=== PATIENT | female | born 1985 | race Caucasian/White ===

== ENCOUNTER 2021-11-03 09:37 | Outpatient (CLI) | payer OTHER, SELFPAY ==
[2021-11-03 09:58] LABS: Basophils Absolute Auto 0.07 K/mm3 (0.00-0.10); Basophils Percent Auto 0.8 % (0.0-1.0); Eosinophils Absolute Auto 0.24 K/mm3 (0.02-0.50); Eosinophils Percent Auto 2.8 % (1.0-6.0); Hematocrit 40.4 % (35.0-49.0); Hemoglobin 13.2 g/dL (12.0-15.0); Immature Granulocyte Absolute 0.03 K/mm3 (0.00-0.00); Immature Granulocyte Percent A 0.4 % (0.0-0.0); Lymphocytes Absolute Auto 2.19 K/mm3 (1.10-4.50); Lymphocytes Percent Auto 25.9 % (18.0-42.0); Mean Corpuscular HGB Conc 32.7 g/dL (32.0-36.0); Mean Corpuscular Hemoglobin 30.2 pg (27.0-31.0); Mean Corpuscular Volume 92.4 fL (78.0-102.0); Mean Platelet Volume 9.3 fl (9.2-11.8); Monocytes Absolute Auto 0.53 K/mm3 (0.10-0.90); Monocytes Percent Auto 6.3 % (2.0-11.0); Neutrophils Absolute Auto 5.4 K/mm3 (1.7-7.2); Neutrophils Percent Auto 63.8 % (50.0-70.0); Platelet Count Result 373 K/mm3 (150-420); Red Blood Count 4.37 M/mm3 (4.20-5.40); Red Cell Distribution Width 13.1 % (11.6-14.4); White Blood Count 8.5 K/mm3 (4.8-10.8)
[2021-11-03 10:53] LABS: Alanine Aminotransferase 40 U/L (14-59); Alkaline Phosphatase 120 U/L (46-116); Anion Gap 11 mmol/L (8-16); Aspartate Amino Transferase 22 U/L (15-37); Bilirubin,Total 0.3 mg/dL (0.00-1.00); Blood Urea Nitrogen 12 mg/dL (7-18); Calcium 9.4 mg/dL (8.5-10.1); Carbon Dioxide 22 mmol/L (21-32); Chloride 103 mmol/L (98-108); Cholesterol 190 mg/dL (0-200); Estimated Glomerular Filt Rate > 60; Glucose 99 mg/dL (70-99); HDL Direct 58 mg/dL (40-60); LDL Cholesterol Calculated 107 mg/dL (<130); Osmolality Calculated 281 mOsm/kg (285-295); Potassium 4.1 mmol/L (3.5-5.1); Sodium 136 mmol/L (136-145); Thyroid Stimulating Hormone 1.07 uIU/mL (0.36-3.74); Total Protein 7.5 g/dL (6.4-8.2); Triglycerides 126 mg/dL (0-150)
== END 2021-11-03 09:38 | disposition home or self-care (01) ==
LOC: CHSLAB 09:42
PROVIDERS: PCP Nurse Practitioner Family; Visit Provider Nurse Practitioner Family
DX: F41.9 Anxiety disorder, unspecified (principal); E28.2 Polycystic ovarian syndrome
CPT/HCPCS: 36415; 80053; 80061; 84443; 85025

== ENCOUNTER 2021-11-06 11:20 | Outpatient (CLI) | payer OTHER, SELFPAY ==
--- NOTE | ~2021-11-06 | XR_ITS ---
EXAMINATION: XR shoulder LT min 2V DATE: 11/06/2021 11:34 INDICATION: Left shoulder pain. TECHNIQUE: 4 views of left shoulder were obtained. COMPARISON: None. FINDINGS: Bone alignment is normal. No fracture. There is a benign bone island in humeral head. Gleno humeral joint is normal. There is mild acromioclavicular joint osteoarthritis. IMPRESSION: 1. Mild left acromioclavicular joint osteoarthritis. Reviewed, dictated and finalized at location A.
== END 2021-11-06 11:21 | disposition home or self-care (01) ==
LOC: CHSIMG 11:22
PROVIDERS: PCP Nurse Practitioner Family; Visit Provider Nurse Practitioner Family
DX: M25.512 Pain in left shoulder (principal)
CPT/HCPCS: 73030

== ENCOUNTER 2021-12-02 07:50 | Outpatient (RCR) | payer OTHER, SELFPAY ==
--- NOTE | 2021-12-02 10:04 | PTOPEVAL ---
Thank you for referring Ines Wilkins to [facility].? The patient is scheduled to be seen for therapy? ____x/week for ___ weeks. Please review, sign, date and return this plan of care REGGIE. I agree with and certify that the following plan of care is medically necessary. Referring Physician Date Admitting Provider: Attending Provider: Diana Woods NP Referring Provider: *PT Outpatient Evaluation Start: 12/02/21 07:02 Freq: Status: Active Protocol: Document 12/02/21 07:00 [facility] (Rec: 12/02/21 08:32 [facility] [email or web address]) Therapy Assessment Status Assessment Status Assessment Status Evaluation Evaluation Information Problem Diagnosis L Shoulder Pain Onset 11/09/21 Additional Evaluation Detail QuickDASH = 31.8% Functionally Declined Subjective Information Pt reports that she fell into Query Text:As Reported By Patient/ a wall with her L shoulder. Family Within a few hours, she had went to a doctor due to having a sharp, shooting, and burning sensation in her L arm . She felt as though her arm was weight. She now struggles when lifting her arm to about the level of her head. She states that her arm has remained sore since the injury. She likes to ride bikes, and this will increase her shoulder pain. She takes ibuprofen and uses lidocaine patches to decrease her pain. She also experiences difficulty with sleeping due to her shoulder pain waking her up as well as while working at home on a computer. Prior Level of Function Comments Additional Prior Level of Function Pt reports that she was able Comments to work and sleep without difficulty. Pain Assessment Timing of Pain Assessment Timing of Pain Assessment Assessment Pain Scale Pain Scale Used Numeric (1 - 10) Self Report Pain Assessment Left Shoulder(s) Reported Pain Level 3 Lowest Pain Intensity 1 Greatest Pain Intensity 6 Pain Score Pain Score 3: Self Report Interventions Used Interventions Used By Clinicians Activity or ADL's,Education, Exercise Upper Extremity Range of Motion Scapular/ Shoulder Range of Zoltan
--- NOTE | 2021-12-30 08:01 | PTOPEVAL ---
Thank you for referring Ines Wilkins to [facility].? The patient is scheduled to be seen for therapy? ____x/week for ___ weeks. Please review, sign, date and return this plan of care REGGIE. I agree with and certify that the following plan of care is medically necessary. Referring Physician Date Admitting Provider: Attending Provider: Diana Woods NP Referring Provider: *PT Outpatient Evaluation Start: 12/02/21 07:02 Freq: Status: Active Protocol: Document 12/30/21 07:00 BELKYS (Rec: 12/30/21 07:57 [facility] [email or web address]) Therapy Assessment Status Assessment Status Assessment Status Re-evaluation Evaluation Information Problem Diagnosis L Shoulder Pain Onset 11/09/21 Additional Evaluation Detail quick dash = 31.8% functionally declined Subjective Information patient reports she had been Query Text:As Reported By Patient/ feeling better, but as of late Family she has been more sore. she reports she has been more sore due to having to lift her father up and help out with more after a recent fall he had. she reports she would like to continue for a short stent of therapy to return back to her pain free performance of activities. Pain Assessment Timing of Pain Assessment Timing of Pain Assessment Assessment Pain Scale Pain Scale Used Numeric (1 - 10) Self Report Pain Assessment Left Shoulder(s) Reported Pain Level 7 Pain Score Pain Score 7: Self Report Interventions Used Interventions Used By Clinicians Activity or ADL's,Education, Exercise Upper Extremity Range of Motion Scapular/ Shoulder Range of Motion Left Shoulder Flexion - Active 160 Shoulder Medial Rotation - Active 50 Shoulder Lateral Rotation - Active 90 Scapular/Shoulder Range of Motion pain increased in the L Comments shoulder with far flexion and abduction of the L shoulder. functional ER reach to the upper thoracic spine functional IR reach to the middle/lower thoracic spine Upper Extremity Muscle Strength Testing Scapular/Shoulder Left Shoulder Flexion Strength 4+ Good + Shoulder Extension Strength 5 Normal Shoulder Abduction Strength 4+ Good + Shoulder Medial Rotation Strength 5 Normal Shoulder Lateral Rotation Strength 4 Good Elbow/Forearm Left Elbow Flexion Streng
--- NOTE | 2022-01-12 07:55 | PTOPEVAL ---
Thank you for referring Ines Wilkins to [facility].? The patient is scheduled to be seen for therapy? ____x/week for ___ weeks. Please review, sign, date and return this plan of care REGGIE. I agree with and certify that the following plan of care is medically necessary. Referring Physician Date Admitting Provider: Attending Provider: Diana Woods NP Referring Provider: SHANITA Outpatient Evaluation Start: 12/02/21 07:02 Freq: Status: Active Protocol: Document 01/12/22 07:10 [facility] (Rec: 01/12/22 07:53 [facility] [email or web address]) Therapy Assessment Status Assessment Status Assessment Status Discharge Evaluation Information Problem Diagnosis L Shoulder Pain Onset 11/09/21 Additional Evaluation Detail quick dash = 4.5% functionally declined Subjective Information patient reports she feels Query Text:As Reported By Patient/ good this date. she reports Family no pain, but fatigue in the shoulder with exercises/ activities. she reports she is ready to make today her last therapy session. Pain Assessment Timing of Pain Assessment Timing of Pain Assessment Assessment Self Report Self Report Pain Level 0 Pain Score Pain Score 0: Self Report Upper Extremity Range of Motion Scapular/ Shoulder Range of Motion Left Shoulder Flexion - Active 160 Shoulder Medial Rotation - Active 60 Shoulder Lateral Rotation - Active 90 Scapular/Shoulder Range of Motion functional ER reach to the Comments upper thoracic spine functional IR reach to the middle/lower thoracic spine Upper Extremity Muscle Strength Testing Scapular/Shoulder Left Shoulder Flexion Strength 5 Normal Shoulder Extension Strength 5 Normal Shoulder Abduction Strength 5 Normal Shoulder Medial Rotation Strength 5 Normal Shoulder Lateral Rotation Strength 4+ Good + General Exercise General Exercises Exercise Description Ther Ex: Query Text:Record Sets, Reps, - UBE 8 minutes level 3 (fwd Resistance, and Position and rev) - shoulder flex and scap 2lb x10, 3lb x10, 4lb x10 bilaterally - bent over row 10lb 2x15 bilat - tband light blue ER/IR x20 - tband rows, ext x30 each bilat light blue tband - lateral wall walking 15' x 4 laps with green tband
== END 2022-01-12 10:36 | disposition home or self-care (01) ==
LOC: CHSPT 07:50
PROVIDERS: PCP Nurse Practitioner Family; Visit Provider Nurse Practitioner Family
DX: M19.012 Primary osteoarthritis, left shoulder (principal)
CPT/HCPCS: 97014; 97110; 97140; 97161; G0283

== ENCOUNTER 2022-07-28 10:58 | Outpatient (CLI) | payer OTHER, SELFPAY ==
[2022-07-28 11:56] LABS: Strep Group A RT-PCR DETECTED (Negative)
== END 2022-07-28 10:59 | disposition home or self-care (01) ==
LOC: CHSLAB 10:59
PROVIDERS: PCP Nurse Practitioner Family; Visit Provider Nurse Practitioner Family
DX: J02.0 Streptococcal pharyngitis (principal); Z20.818 Contact with and (suspected) exposure to other bacterial communicable diseases
CPT/HCPCS: 87651

== ENCOUNTER 2023-03-14 10:03 | Outpatient (CLI) | payer OTHER, SELFPAY ==
[2023-03-14 10:21] LABS: Basophils Absolute Auto 0.06 K/mm3 (0.00-0.10); Basophils Percent Auto 0.6 % (0.0-1.0); Hematocrit 39.8 % (35.0-49.0); Immature Granulocyte Absolute 0.04 K/mm3 (0.00-0.00); Immature Granulocyte Percent A 0.4 % (0.0-0.0); Lymphocytes Percent Auto 25.8 % (18.0-42.0); Mean Corpuscular HGB Conc 32.7 g/dL (32.0-36.0); Mean Corpuscular Volume 91.9 fL (78.0-102.0); Mean Platelet Volume 9.2 fl (9.2-11.8); Monocytes Absolute Auto 0.47 K/mm3 (0.10-0.90); Monocytes Percent Auto 4.7 % (2.0-11.0); Neutrophils Absolute Auto 6.6 K/mm3 (1.7-7.2); Neutrophils Percent Auto 65.5 % (50.0-70.0); Platelet Count Result 349 K/mm3 (150-420); Red Blood Count 4.33 M/mm3 (4.20-5.40); White Blood Count 10.1 K/mm3 (4.8-10.8)
[2023-03-14 10:59] LABS: Hemoglobin A1C 5.4 % (<5.7)
[2023-03-14 11:28] LABS: Alanine Aminotransferase 21 U/L (14-59); Albumin Level 3.5 g/dL (3.4-5.0); Alkaline Phosphatase 103 U/L (46-116); Anion Gap 13 mmol/L (8-16); Aspartate Amino Transferase 12 U/L (15-37); Bilirubin,Total 0.3 mg/dL (0.00-1.00); Blood Urea Nitrogen 11 mg/dL (7-18); Calcium 9.1 mg/dL (8.5-10.1); Carbon Dioxide 24 mmol/L (21-32); Chloride 102 mmol/L (98-108); Cholesterol 198 mg/dL (0-200); Estimated Glomerular Filt Rate > 60; Folic Acid > 20.0 ng/mL (8.6->20); Glucose 99 mg/dL (70-99); HDL Direct 48 mg/dL (40-60); LDL Cholesterol Calculated 116 mg/dL (<130); Osmolality Calculated 287 mOsm/kg (285-295); Potassium 4.2 mmol/L (3.5-5.1); Sodium 139 mmol/L (136-145); Total Protein 6.8 g/dL (6.4-8.2); Triglycerides 171 mg/dL (0-150); Vitamin B12 604 pg/mL (193-986)
[2023-03-14 11:41] LABS: Thyroid Stimulating Hormone Reflex 1.14 u/IU/mL (0.36-3.74)
[2023-03-17 12:19] LABS: Vitamin D 25 Hydroxy 24 ng/mL (30-100)
== END 2023-03-14 10:04 | disposition home or self-care (01) ==
LOC: CHSLAB 10:05
PROVIDERS: PCP Nurse Practitioner Family; Visit Provider Nurse Practitioner Family
DX: L81.4 Other melanin hyperpigmentation (principal); R53.83 Other fatigue; Z13.220 Encounter for screening for lipoid disorders; E28.2 Polycystic ovarian syndrome
CPT/HCPCS: 36415; 80053; 80061; 82306; 82607; 82746; 83036; 84443; 85025

== ENCOUNTER 2023-08-26 11:33 | Outpatient (CLI) | payer OTHER, SELFPAY ==
--- NOTE | ~2023-08-26 | XR_ITS ---
Left foot Technique: AP, oblique, and lateral views were obtained. Clinical History: Third toe injury Findings: No acute fracture or dislocation is seen. Osseous alignment is anatomic. Joint spaces are p reserved without erosive or degenerative change. Soft tissues are unremarkable. Impression: Unremarkable left foot radiographs. Reviewed, dictated and finalized at [facility]. Impression: Unremarkable left foot radiographs.
== END 2023-08-26 11:34 | disposition home or self-care (01) ==
LOC: CHSIMG 11:36
PROVIDERS: PCP Nurse Practitioner Family; Visit Provider Nurse Practitioner Family
DX: M79.675 Pain in left toe(s) (principal)
CPT/HCPCS: 73630

== ENCOUNTER 2024-01-26 08:10 | Outpatient (CLI) | payer OTHER, SELFPAY ==
[2024-01-26 08:26] LABS: Basophils Absolute Auto 0.07 K/mm3 (0.00-0.10); Basophils Percent Auto 0.7 % (0.0-1.0); Eosinophils Absolute Auto 0.32 K/mm3 (0.02-0.50); Eosinophils Percent Auto 3.4 % (1.0-6.0); Hematocrit 38.1 % (35.0-49.0); Hemoglobin 12.5 g/dL (12.0-15.0); Immature Granulocyte Absolute 0.02 K/mm3 (0.00-0.00); Immature Granulocyte Percent A 0.2 % (0.0-0.0); Lymphocytes Absolute Auto 3.15 K/mm3 (1.10-4.50); Lymphocytes Percent Auto 33.1 % (18.0-42.0); Mean Corpuscular HGB Conc 32.8 g/dL (32-36); Mean Corpuscular Hemoglobin 29.3 pg (27.0-31.0); Mean Corpuscular Volume 89.2 fL (78.0-102.0); Mean Platelet Volume 9.1 fl (9.2-11.8); Monocytes Absolute Auto 0.51 K/mm3 (0.10-0.90); Monocytes Percent Auto 5.4 % (2.0-11.0); Neutrophils Absolute Auto 5.44 K/mm3 (1.70-7.20); Neutrophils Percent Auto 57.2 % (50.0-70.0); Platelet Count Result 377 K/mm3 (150-420); Red Blood Count 4.27 M/mm3 (4.20-5.40); Red Cell Distribution Width 12.9 % (11.6-14.4); White Blood Count 9.5 K/mm3 (4.8-10.8)
[2024-01-26 08:39] LABS: Hemoglobin A1C 5.6 % (<5.7)
[2024-01-26 09:24] LABS: Alanine Aminotransferase 19 U/L (14-59); Albumin Level 3.2 g/dL (3.4-5.0); Alkaline Phosphatase 116 U/L (46-116); Anion Gap 9 mmol/L (4-12); Aspartate Amino Transferase 12 U/L (15-37); Bilirubin,Total 0.3 mg/dL (0.00-1.00); Blood Urea Nitrogen 7 mg/dL (7-18); Calcium 8.6 mg/dL (8.5-10.1); Carbon Dioxide 27 mmol/L (21-32); Chloride 102 mmol/L (98-108); Cholesterol 191 mg/dL (0-200); Estimated Glomerular Filt Rate > 60; Glucose 96 mg/dL (70-99); HDL Direct 51 mg/dL (40-60); LDL Cholesterol Calculated 118 mg/dL (<130); Osmolality Calculated 284 mOsm/kg (285-295); Potassium 4.4 mmol/L (3.5-5.1); Sodium 138 mmol/L (136-145); Total Protein 6.5 g/dL (6.4-8.2); Triglycerides 109 mg/dL (0-150)
[2024-01-26 09:25] LABS: Thyroid Stimulating Hormone Reflex 0.82 u/IU/mL (0.36-3.74)
[2024-01-28 03:44] LABS: Vitamin D 25 Hydroxy 23 ng/mL (30-100)
== END 2024-01-26 08:11 | disposition home or self-care (01) ==
PROVIDERS: PCP Nurse Practitioner Family; Visit Provider Nurse Practitioner Family
DX: Z00.00 Encounter for general adult medical examination without abnormal findings (principal); E55.9 Vitamin D deficiency, unspecified
CPT/HCPCS: 36415; 80053; 80061; 82306; 83036; 84443; 85025

== ENCOUNTER 2025-02-25 07:54 | Outpatient (CLI) | payer OTHER, SELFPAY ==
[2025-02-25 08:06] LABS: Hematocrit 39.9 % (35.0-49.0); Hemoglobin 12.8 g/dL (12.0-15.0); Immature Granulocyte Percent A 0.2 % (0.0-0.0); Lymphocytes Absolute Auto 3.56 K/mm3 (1.10-4.50); Mean Corpuscular HGB Conc 32.1 g/dL (32-36); Mean Corpuscular Hemoglobin 29.4 pg (27.0-31.0); Mean Corpuscular Volume 91.7 fL (78.0-102.0); Nucleated Red Blood Cells Absolute Auto 0.00 K/mm3 (0.00-0.00); Nucleated Red Blood Cells Perc 0.0 % (0-0.0); Platelet Count Result 395 K/mm3 (150-420); Red Blood Count 4.35 M/mm3 (4.20-5.40); White Blood Count 8.9 K/mm3 (4.8-10.8)
[2025-02-25 08:22] LABS: Hemoglobin A1C 5.0 % (<5.7)
--- OUTSIDE RECORDS SUMMARY | 2025-02-25 08:22 | XMS_ITS | Clinical Summary ---
Author Organization CC [facility] [email or web address] Address [address] [place] [address] Phone Care Team Providers Care Biological Science Technician Name Role Phone Bobby Sorenson MD Primary Care Provider [phone] Allergies Active Allergy Reactions Criticality Noted Date Comments Latex Rash Reaction: RASH Medications citalopram (CeleXA) 20 mg tablet Take 2 tablets (40 mg total) by mouth daily Active metFORMIN (GLUCOPHAGE) 500 mg tablet Take 1 tablet (500 mg total) by mouth 2 (two) times a day with meals Active cetirizine (ZyrTEC) 10 mg capsule 10 mg daily 5 Active Wegovy 1.7 mg/0.75 mL auto-injector Inject under the skin every 7 days 4 Active desogestreL-ethiny l estradioL (Apri) 0.15-0.03 mg per tabletIndications: Oral contraceptive pill surveillance Take 1 tablet daily. Each pack skip placebo pills and start a new pill pack 112 tablet 4 4 Active Active Problems Problem Noted Date Diagnosed Date Traumatic closed nondisplace d fracture of cuboid bone of right foot 10/06/2018 Sprain of anterior talofibular ligament of right ankle 10/06/2018 Obesity with body mass index 30 or greater 01/28 Overview (09/10/2016): BMI 30+ - obesity Asthma 04/20/2014 Overview (09/10/2016): Asthma Polycystic ovaries 04/20/2014 Overview (09/10/2016): PCOS - Polycystic ovarian syndrome Immunizations Immunization Administration Dates Next Due Tdap 09/06/2014 Surgical History Surgery Date Site/Laterality Comments APPENDECTOMY OTHER SURGICAL HISTORY Abnormal Pap, HR HPV: Colposcopy 14 - TY 1 SECTION 06/06/2014 - 06/05/2015 Medical History Medical History Date Comments Hx Other Medical Abnormal Pap, H R HPV; Comments: RED 04/20/2014 - Hx Other Medical Asthma - mild; Comments: RED 04/20/2014 - Hx Other Medical PCOS; Comments: RED 04/20/2014 - Hx Other Medical ; Comm ents: Pitocin induction for post-dates. 1' LTCS for NRFHTs.; Outcome: 41W1D week 7lb(s) 12 oz Male Family History Medical History Relation Name Comments Diabetes Father Diabetes mellit us; Hyperlipidemia Father High choleste rol; Hypertension Father Hypertension; Colon cancer Father's Brother Cancer, col on; Colon cancer Father's Sister x2 Cancer, colo n; Lung cancer Maternal Grandfather Cancer, lung; Breast cancer Maternal Grandmother Cancer , breast; Heart attack Maternal Grandmother Myocard ial infarction; Breast cancer Other 1 MGGM Cancer, breast ; Breast cancer Other 2 Family history of Cancer, breast; Colon cancer Other 3 Family history of Cancer, colon; Lung cancer Other 4 Family history of Cancer, lung; Pancreatic cancer Other 5 Family his tory of Cancer, pancreas; Diabetes Other 6 Family history of Diabetes mellitus; Hypertension Other 7 Family history of Hypertension; Breast cancer Paternal Grandmother Cancer , breast; Relation Name Status Comments Father Father's Brother Father's Sister x2 Maternal Grandfather Maternal Grandmother Other 1 MGGM Other 2 Other 3 Other 4 Other 5 Other 6 Other 7 Paternal Grandmother Social History Tobacco Use Types Packs/Day Years Used Date Smoking Tobacco: Never Smokeless Tobacco: Never Tobacco Cessation:Counseling Given: Not Answered Alcohol Use Standard Drinks/Week Comments No 0 (1 standard drink = 0.6 oz pur e alcohol) Comments No Sex and Gender Information Value Date Recorded Sex Assigned at Not on file Legal Sex Female 10:00 AM CLOUD SERVICES ARCHITECT Gender Identity Female 04/23/2023 1:09 PM CLOUD SERVICES ARCHITECT Sexual Orientation Not on file Occupation Industry Job Start Date Job End Date RN Not on file Not on file Not on file Obstetrics History Para Term AB IAB SAB Ectopic Multiple Livin g Live Births 1 1 1 0 0 1 Date Outcome GA Total Labor Labor/2nd/3rd Weight Sex Type Anes PTL Megan A1 A5 Name Clin Term Last Filed Vital Signs Vital Sign Reading Time Taken Comments Blood Pressure 110/80 04/18/2024 9:53 AM CLOUD SERVICES ARCHITECT Pulse 68 12/26/2018 10:53 AM CDT Temperature 36.6 C (97.8 F) 02/27/2020 10:52 AM CDT Respiratory Rate 16 12/26/2018 10:53 AM CDT Oxygen Saturation 100% 10/06/2018 4:22 PM CDT Inhaled Oxygen Concentration - - Weight 97.1 kg (214 lb) 04/18/2024 9:53 AM CLOUD SERVICES ARCHITECT Height 163.8 cm (5' 4.5) 04/18/2024 9:53 AM CLOUD SERVICES ARCHITECT Body Mass Index 36.17 04/18/2024 9:53 AM CLOUD SERVICES ARCHITECT Plan of Treatment Health Maintenance Due Date Last Done Comments Breast Cancer Screening-Mammogram 1984 Depression Screening 1984 Varicella Vaccines (1 of 2 - 13+ 2-dose series) 1997 Hepatitis B Screening 2002 Pneumococcal vaccine <65 (1 of 2 - PCV) 09/25/2003 HPV Vaccines (1 - 3-dose SCD M series) 09/25/2011 DTaP/Tdap/Td Vaccine (2 - Td or Tdap) 09/06/2024 09/06/2014 Covid-19 Vaccine (3 - 2024-2 6 season) 2025 06/30/2020, 06/02/2020 Influenza Vaccine (#1) 2025 Cervical Cancer Screening 04/18/20252023, 04/11/2023, 03/31/2022, Additional history exists Regular Well Visit/Exam 18-64 04/18/2025, 04/11/2023, 03/31/2022, Additional history exists Hepatitis C Screening Completed 04/26/2014 Procedures Procedure Name Priority Date/Time Associated Diagnosis Comments PAP WITH REFLEX TO HIGH RISK HPV Routine 04/18/2024 10:24 AM CLOUD SERVICES ARCHITECT SERUM HEPATITIS C AB Routine 04/26/2014 9:00 AM CLOUD SERVICES ARCHITECT from Last 3 Months or Most Recently Relevant to Health Maintenance Results * Pap with reflex to High Risk HPV and Genotyping (Cytology Component) (04/18/2024 10:24 AM CLOUD SERVICES ARCHITECT) Pap test 04/18/2024 10:2 4 AM CLOUD SERVICES ARCHITECT 04/18/2024 10:24 AM CLOUD SERVICES ARCHITECT Narrative 04/20/2024 10:12 AM CLOUD SERVICES ARCHITECT [facility] Department of Pathology [address] [place] [address] Final Report Note to Patients: This report may contain a detailed description of human tissue sent by a health care provider to the laboratory for pathologic evaluation. The content of this report is essential for diagnosis and may provide important critical findings. This information may be unfamiliar to patients to review without a medical professional present. It is advised that the patient review this report in the presence of a health care provider who can answer questions and explain the details. Patient Name: INES WILKINS Address: [address] [place] [address]- Gender: F : 1985 (Age: 38) Service: Location: N : [id number] [facility] #: [id number] Patient Type: [facility] SPECIMEN Taken: 04/18/2024 Received: 04/18/2024 Accessioned:: 04/19/2024 Reported: 04/20/2024 Physician(s): MD Sangeetha Orourke MD Diagnosis: SOURCE OF SPECIMEN Imaged Thinprep Pap Test w/ Reflex HPV - Apprentice Photographer Cytologic Material: STATEMENT OF ADEQUACY - Satisfactory for evaluation; endocervical/transformation zone component present GENERAL CATEGORIZATION: - Negative for intraepithelial lesion or malignancy BELTRAN Jose(ASCP) Report Electronically Reviewed and Signed Out By BELTRAN Jose(ASCP) 04/20/2024 10:12:52Specimen(s) Received: A: Imaged Thinprep Pap Test w/ Reflex HPV - Apprentice Photographer Cytologic Material Clinical History: Menstrual History: Previous Negative Pap Contraceptive History: Oral Contraceptives The Pap test is a screening test used to aid in the detection of cervical cancer and its precursors. It should not be the sole means by which malignant and premalignant lesions are diagnosed. Both false negative and false positive results may occur. It also has poor sensitivity for the detection of endometrial lesions and should not be used to evaluate suspected endometrial abnormalities. For these reasons it is most important to obtain Pap tests at regular intervals. The performance characteristics of some immunohistochemical stains, fluorescence in-situ hybridization tests and immunophenotyping by flow cytometry cited in this report (if any) were determined by the Surgical Pathology Department at [facility] as part of an ongoing compliance quality performance analyst program and in compliance with federally mandated regulations drawn from the Clinical Laboratory Improvement Act of 1988 (CLIA '88). Some of these tests rely on the use of analyte specific reagents and are subject to specific labeling requirements by the US Food and Drug Administration. Such diagnostic tests may only be performed in a facility that is certified by the Department of Health and Human Services as a high complexity laboratory under CLIA '88. The FDA has determined that such clearance or approval is not necessary. This test is used for clinical purposes. It should not be regarded as investigational or for research. Nevertheless, federal rules concerning the medical use of analyte specific reagents require that the following disclaimer be attached to the report: This test was developed and its performance characteristics determined by the Surgical Pathology Department [facility]. It has not been cleared or approved by the U. S. Food and Drug Administration. Sangeetha Weber MD LAB CYTOLOGY ORDERABL ES Final Result * Serum Hepatitis C ab (04/26/2014 9:00 AM CLOUD SERVICES ARCHITECT) HCV ab NONREAC NONREAC HISTORICAL RESULTS Serum 04/26/2014 9:00 AM CLOUD SERVICES ARCHITECT Narrative HISTORICAL RESULTS - 04/30/2014 7:22 AM CLOUD SERVICES ARCHITECT HEP C EARLY ACUTE INFECTION (OCCURING DURING THE PRIOR 8-9 WEEKS) IS NOT RULED OUT BY THIS TEST. Sangeetha Weber MD LAB BLOOD ORDERABLES Final Result HISTORICAL RESULTS from Last 3 Months or Most Recently Relevant to Health Maintenance Insurance [employer] [facility] Care Teams Biological Science Technician Relationship Specialty Start Date End Date Bobby Sorenson MD PCP - General 10/06/18
[2025-02-25 08:45] LABS: Alanine Aminotransferase 11 U/L (6-35); Albumin Level 4.2 g/dL (3.5-5.1); Alkaline Phosphatase 84 U/L (38-126); Anion Gap 9 mmol/L (4-12); Aspartate Amino Transferase 16 U/L (14-36); Bilirubin,Total 0.5 mg/dL (0.2-1.3); Blood Urea Nitrogen 11 mg/dL (7-17); Calcium 9.6 mg/dL (8.4-10.2); Carbon Dioxide 25 mmol/L (22-30); Chloride 109 mmol/L (98-107); Cholesterol 203 mg/dL (0-200); Estimated Glomerular Filt Rate > 60; Glucose 103 mg/dL (65-110); HDL Direct 58 mg/dL; Osmolality Calculated 295 mOsm/kg (285-295); Potassium 4.5 mmol/L (3.4-5.0); Sodium 143 mmol/L (137-145); Total Protein 7.5 g/dL (6.3-8.2); Triglycerides 83 mg/dL (<150)
[2025-02-25 09:15] LABS: Thyroid Stimulating Hormone Reflex 0.451 uIU/mL (0.465-4.68)
[2025-02-25 10:21] LABS: Free T4 Free Thyroxine Reflex 1.04 ng/dL (0.78-2.19)
== END 2025-02-25 07:55 | disposition home or self-care (01) ==
LOC: CHSLAB 07:54
PROVIDERS: PCP Nurse Practitioner Family; Visit Provider Nurse Practitioner Family
DX: Z00.00 Encounter for general adult medical examination without abnormal findings (principal); E55.9 Vitamin D deficiency, unspecified
CPT/HCPCS: 36415; 80053; 80061; 82306; 83036; 84439; 84443; 85025

== ENCOUNTER 2025-03-08 10:50 | Outpatient (CLI) | payer OTHER, SELFPAY ==
--- NOTE | ~2025-03-08 | US_ITS ---
Clinical history:Dyphonia EXAM:Ultrasound thyroid TECHNIQUE:Multiple static grayscale images and color images were obtained of the thyroid gland. Comparisons:None available FINDINGS: Right thyroid lobe measures 4.5 x 2.1 x 1.6 cm. There is a 1.1 x 0.9 x 0.7 cm solid hypoechoic wider than tall nodule in the right thyroid lobe. TR4. There is a 0.3 x 0.3 x 0.3 cm solid hypoechoic nodule in the right thyroid lobe. Left thyroid lobe measures 4.2 x 1.5 x 1.4 cm. There is a solid hypoechoic 1.1 x 1.1 x 1.0 cm hypoechoic nodule in the left thyroid lobe. TR4. Isthmus measures 0.4 cm. IMPRESSION: 1. There are two 1.1 cm thyroid nodules. A follow-up thyroid ultrasound in 6 months is recommended. Reviewed, dictated and finalized at location Q. IMPRESSION: 1. There are two 1.1 cm thyroid nodules. A follow-up thyroid ultrasound in 6 mo nths is recommended.
--- OUTSIDE RECORDS SUMMARY | 2025-03-08 10:56 | XMS_ITS | Clinical Summary ---
Author Organization CC [facility] [address] Address [address] [place] [address] Phone Care Team Providers Care Project Director Name Role Phone Bobby Sorenson MD Primary Care Provider [phone] Allergies Active Allergy Reactions Criticality Noted Date [...] on file Legal Sex Female 10:00 AM SUPERVISOR [employer]AD[employer] Gender Identity Female 04/23/2023 1:09 PM SUPERVISOR [employer] Sexual Orientation Not on file Occupation Industry [...] Comments Blood Pressure 110/80 04/18/2024 9:53 AM SUPERVISOR [employer] Pulse 68 12/26/2018 10:53 AM CDT Temperature 36.6 C (97.8 F) 02/27/2020 10:52 AM CDT Respiratory Rate 16 12/26/2018 10:53 AM CDT Oxygen Saturation 100% 10/06/2018 4:22 PM CDT Inhaled Oxygen Concentration - - Weight 97.1 kg (214 lb) 04/18/2024 9:53 AM SUPERVISOR [employer]OPELL[employer] LOADING Height 163.8 cm (5' 4.5) 04/18/2024 9:53 AM SUPERVISOR [employer]OPELL[employer] LOADING Body Mass Index 36.17 04/18/2024 9:53 AM SUPERVISOR [employer] Plan of Treatment Health Maintenance Due Date [...] HIGH RISK HPV Routine 04/18/2024 10:24 AM SUPERVISOR [employer]OPELL[employer] LOADING SERUM HEPATITIS C AB Routine 04/26/2014 9:00 AM SUPERVISOR [employer]OPELL[employer] LOADING from Last 3 Months or Most Recently Relevant to Health Maintenance Results * Pap with reflex to High Risk HPV and Genotyping (Cytology Component) (04/18/2024 10:24 AM SUPERVISOR [employer]OPE[employer] LOADING) Pap test 04/18/2024 10:2 4 AM SUPERVISOR [employer]OPE[employer] LOADING 04/18/2024 10:24 AM SUPERVISOR [employer]OPE[employer] LOADING Narrative 04/20/2024 10:12 AM SUPERVISOR [employer]OPELL[employer] LOADING [facility] Department of Pathology [address] [place] [address] Final Report Note to Patients: This report [...] the details. Patient Name: INES WILKINS Address: [address] [place] [address]- Gender: F : 1985 (Age: 38) Service: Location: N : [id number] [facility] #: [id number] Patient Type: AMH SPECIMEN Taken: 04/18/2024 Received: 04/18/2024 Accessioned:: 04/19/2024 Reported: 04/20/2024 Physician(s): MD Sangeetha Orourke MD Diagnosis: SOURCE OF SPECIMEN Imaged Thinprep Pap Test w/ Reflex HPV - Ergonomist Cytologic Material: STATEMENT OF ADEQUACY - Satisfactory for evaluation; endocervical/transformation zone component present GENERAL CATEGORIZATION: - Negative for intraepithelial lesion or malignancy BELTRAN Jose(ASCP) Report Electronically Reviewed and Signed Out By BELTRAN Jose(ASCP) 04/20/2024 10:12:52Specimen(s) Received: A: Imaged Thinprep Pap Test w/ Reflex HPV - Ergonomist Cytologic Material Clinical History: Menstrual History: Previous [...] determined by the Surgical Pathology Department at [facility] as part of an ongoing research associate quality control qc program and in compliance with federally mandated [...] characteristics determined by the Surgical Pathology Department [facility]. It has not been cleared or approved by the U. S. Food and Drug Administration. Sangeetha Weber MD LAB CYTOLOGY ORDERABL ES Final Result * Serum Hepatitis C ab (04/26/2014 9:00 AM SUPERVISOR [employer]OPE[employer] LOADING) HCV ab NONREAC NONREAC HISTORICAL RESULTS Serum 04/26/2014 9:00 AM SUPERVISOR PROPELL[employer] LOADING Narrative HISTORICAL RESULTS - 04/30/2014 7:22 AM SUPERVISOR PROPELLANT CHARGE LOADING HEP C EARLY ACUTE INFECTION (OCCURING DURING THE PRIOR 8-9 WEEKS) IS NOT RULED OUT BY THIS TEST. Sangeetha Weber MD LAB BLOOD ORDERABLES Final Result HISTORICAL RESULTS from Last 3 Months or Most Recently Relevant to Health Maintenance Insurance [employer] [facility] Care Teams Project Director Relationship Specialty Start Date End Date Bobby Sorenson MD PCP - General 10/06/18
== END 2025-03-08 10:51 | disposition home or self-care (01) ==
LOC: CHSIMG 10:51
PROVIDERS: PCP Nurse Practitioner Family; Visit Provider Nurse Practitioner Family
DX: R79.89 Other specified abnormal findings of blood chemistry (principal); R49.0 Dysphonia
CPT/HCPCS: 76536